=== PATIENT | female | born 1960 ===

== ENCOUNTER 2016-08-27 09:37 | Emergency (ER) | payer BC ==
[2016-08-27 10:13] VITALS: BP 147/87; PULSE 69; RESP 18; TEMP 97.6; O2SAT 97
--- NOTE | 2016-08-27 10:37 | ED PDOC ---
Lower Extremity Pain/Injury Time Seen by Provider: 08/27/16 09:58 Chief Complaint (Nursing): Lower Extremity Problem/Injury Additional Complaint(s): Patient is a 56 y/o F with hx of hip pain x 3 years with multiple evaluations at different [facility]. She reports that she has been diagnosed with sciatica but unable to follow-up with pain management or other specialists due to lack of insurance. She reports that her pain is unchanged from prior episodes. She reports that it is R hip pain that is radiating into the lateral right leg. She reports that it is worse when she is sitting. Denies fever, weakness, numbness, urinary or bowel incontinence, bony hip tenderness, abdominal pain, or back pain. Denies trauma. [place] Rx was checked and and although given a rx for percocet on 07/22/16 at [facility] and patient reports that she filled it, it is not showing in system. Past Medical History Vital Signs: Last Vital Signs Temp 97.6 F 08/27/16 10:01 Pulse 69 08/27/16 10:01 Resp 18 08/27/16 10:01 BP 147/87 08/27/16 10:01 Pulse Ox 97 08/27/16 10:01 - Medical History PMH: Gastritis, HTN, Hyperlipidemia, Hypothyroidism - Family History Family History: States: Unknown Family Hx - Immunization History Hx Tetanus Toxoid Vaccination: Yes Hx Influenza Vaccination: Yes Hx Pneumococcal Vaccination: No - Home Medications Home Medications: Ambulatory Orders Medication Instructions Recorded RX: Omeprazole 40 mg PO DAILY 06/03/15 Lipase/Protease/Amylase [Creon Dr 1 each PO BID 07/22/16 6,000 Units Capsule] Lisinopril/Hydrochlorothiazide 1 tab PO DAILY 07/22/16 [Lisinopril-Hydrochlorothiazide 25 mg-20 mg] amLODIPine [Norvasc] 10 mg PO DAILY 07/22/16 oxyCODONE/Acetaminophen [Percocet 1 ea PO Q6 PRN #8 tab 07/22/16 5/325 mg Tab] Cyclobenzaprine [Flexeril] 5 mg PO TID #20 tab 08/27/16 - Allergies Allergies/Adverse Reactions: Allergies Allergy/AdvReac Type Severity Reaction Status Date / Time aspirin Allergy Severe ITCHING Verified 08/27/16 09:56 Review of Systems Constitutional: Negative for: Fever, Weight loss Cardiovascular: Negative for: Chest Pain Respiratory: Negative for: Cough, Shortness of Breath Gastrointestinal: Negative for: Nausea, Vomiting, Abdominal Pain, Diarrhea, Constipation Musculoskeletal: Positive for: Other (r buttock pain radiating into R lateral thigh). Negative for: Neck Pain, Back Pain Neurological: Negative for: Weakness, Numbness, Headache, Dizziness Physical Exam - Physical Exam Appears: Positive for: Well, Non-toxic Head Exam: Positive for: ATRAUMATIC, NORMAL INSPECTION, NORMOCEPHALIC Skin: Positive for: Normal Color, Warm, Dry Eye Exam: Positive for: Normal appearance, EOMI, PERRL Neck: Positive for: Normal, Supple Cardiovascular/Chest: Positive for: Regular Rate, Rhythm. Negative for: Chest Non Tender, JVD, Murmur Respiratory: Positive for: Normal Breath Sounds. Negative for: Rales, Rhonchi, Stridor Gastrointestinal/Abdominal: Positive for: Soft. Negative for: Tenderness, Mass , Distended Back: Positive for: Normal Inspection, Other (no midline tenderness. No bony hip tenderness). Negative for: L CVA Tenderness, R CVA Tenderness, Vertebral Tenderness Extremity: Positive for: Normal ROM, Other (pinpoint area of tenderness in R buttock radiating into R lateral leg). Negative for: Pedal Edema, Calf Tenderness, Deformity, Swelling Neurologic/Psych: Positive for: Alert, fur operator II-XII, Oriented, Gait (normal). Negative for: Motor/Sensory Deficits, Aphasia, Facial Droop - ECG O2 Sat by Pulse Oximetry: 97 Medical Decision Making Medical Decision Making: Presentation is consistent with sciatica. Patient has normal gait and normal neurologic exam. This has been a chronic complaint. Patient given pain medication and instructed to follow-up with pain mgmt and orthopedics which she can do now that she has insurance. Disposition - Clinical Impression Clinical Impression: Sciatica - Disposition Referrals: [facility] at [place] [Outside] [facility] [place] [Outside] [facility] [Outside] Disposition: Routine/Home Disposition Time: 10:38 Condition: GOOD Additional Instructions: Follow up with pain mgmt and orthopedics. Return to ED if condition worsens. Follow-up with PMD within 2 days. Flexeril for pain Prescriptions: Cyclobenzaprine [Flexeril] 5 mg PO TID #20 tab Instructions: Sciatica (ED) Print Language: [id number]
== END 2016-08-27 11:10 | disposition home or self-care (01) ==
LOC: H.ER 09:37
DX: M54.31 Sciatica, right side (principal); E03.9 Hypothyroidism, unspecified; E78.5 Hyperlipidemia, unspecified; I10 Essential (primary) hypertension